=== PATIENT | female | born 1965 | race Caucasian/White ===

== ENCOUNTER 2022-12-09 23:37 | Inpatient (IN) | payer OTHER ==
[~2022-12-09] VITALS: Ht 167.6 cm; Wt 88.7 kg
[2022-12-10] MEDS ORDERED: LISI-894 PO (01:49)
[2022-12-10] MEDS ORDERED: ATOR20TA PO (01:49)
[2022-12-10] MEDS ORDERED: AMLO-257 PO (01:49)
[2022-12-10] MEDS ORDERED: CARV6 PO (01:49)
[2022-12-10] MEDS ORDERED: ASPI-1444 PO (01:49)
[2022-12-10] MEDS ORDERED: METF-1211 PO (01:49)
[2022-12-10] MEDS ORDERED: CLOP75TA60 PO (01:49)
[2022-12-10 02:00] LABS: BASOPHILS % (AUTO) 0.8 % (0.0-2.0); EOSINOPHILS % (AUTO) 5.3 % (1.0-6.0); HEMATOCRIT 38.4 % (36-46); HEMOGLOBIN 12.8 g/dL (12.0-16.0); LYMPHOCYTES # (AUTO) 2.2 K/uL (1.0-4.8); LYMPHOCYTES % (AUTO) 27.4 % (22.0-44.0); MEAN CORPUSCULAR HEMOGLOBIN 29.9 pg (26.0-34.0); MEAN CORPUSCULAR HGB CONC 33.3 G/dL (31.0-37.0); MEAN CORPUSCULAR VOLUME 90 fL (80-100); MONOCYTES # (AUTO) 0.5 K/uL (0.1-1.0); NEUTROPHILS # (AUTO) 4.9 K/uL (1.8-7.7); NEUTROPHILS % (AUTO) 60.5 % (40.0-70.0); PLATELET COUNT (AUTO) 181 K/uL (150-450); RED BLOOD CELL COUNT(AUTO) 4.28 MIL/uL (4.00-5.20); RED CELL DISTRIBUTION WIDTH 13.7 % (11.5-14.5)
[2022-12-10 02:08] LABS: ANION GAP 12 mmol/L (8-16); CALCIUM, TOTAL 9.4 mg/dL (8.8-10.5); CARBON DIOXIDE 29 mmol/L (22-29); CHLORIDE 101 mmol/L (98-107); CREATININE 1.03 mg/dL (0.60-1.30); GLOMERULAR FILTR. RATE CALC 55 mL/min (>60); GLUCOSE,RANDOM 150 mg/dL (70-110); SODIUM SERUM 142 mmol/L (136-145)
[2022-12-10 02:14] LABS: ALANINE AMINOTRANSFERASE 32 U/L (12-78); ALBUMIN 3.9 g/dL (3.4-5.0); ALKALINE PHOSPHATASE 67 U/L (46-116); ASPARTATE AMINOTRANSFERASE 13 U/L (15-37); BILIRUBIN,TOTAL 0.4 mg/dL (0.1-1.0); TOTAL PROTEIN, SERUM 7.7 g/dL (6.4-8.2)
[2022-12-10 02:30] LABS: COVID AG,FIA SOURCE NASOPHARYNGEAL
[2022-12-10 02:36] LABS: AMPHET/METH SCREEN,URINE NEGATIVE (NEGATIVE); BARBITURATE SCREEN, URINE NEGATIVE (NEGATIVE); BENZODIAZEPINES SCREEN,URINE NEGATIVE (NEGATIVE); CANNABINOID SCREEN,URINE NEGATIVE (NEGATIVE); COCAINE SCREEN,URINE NEGATIVE (NEGATIVE); METHADONE SCREEN, URINE NEGATIVE (NEGATIVE); OPIATE SCREEN,URINE NEGATIVE (NEGATIVE); PHENCYCLIDINE SCREEN,URINE NEGATIVE (NEGATIVE)
[2022-12-10] MEDS ORDERED: ONDANSETRON HCL 4 MG/2 ML VIAL IVP PRN (06:00)
[2022-12-10 06:37] VITALS: BP 127/57
[2022-12-10] MEDS ORDERED: CARVEDILOL 6.25 MG TABLET PO SCH (09:00)
[2022-12-10] MEDS ORDERED: AmLODIPine BESYLATE 5 MG TABLET PO SCH (09:00)
[2022-12-10] MEDS: ASPIRIN 81 MG DR TABLET PO SCH (09:06)
[2022-12-10] MEDS: HEPARIN SODIUM,PORCINE 5,000 UNITS/ML VIAL SQ SCH ×2 (09:06→15:59)
[2022-12-10] MEDS: MetFORMIN HCL 500 MG TABLET PO SCH ×2 (09:06→17:26)
[2022-12-10] MEDS: CLOPIDOGREL BISULFATE 75 MG TABLET PO SCH (09:07)
[2022-12-10 20:01] VITALS: BP 151/62
[2022-12-10] MEDS: ACETAMINOPHEN 325 MG TABLET PO PRN (20:05)
[2022-12-10] MEDS ORDERED: LISINOPRIL 10 MG TABLET PO SCH (21:00)
[2022-12-10] MEDS ORDERED: ATORVASTATIN CALCIUM 20 MG TABLET PO SCH (21:00)
[2022-12-10] MEDS ORDERED: LISINOPRIL 20 MG TABLET PO SCH (21:00)
[2022-12-11 04:02] VITALS: BP 142/56
[2022-12-11 07:30] VITALS: BP 112/60
[2022-12-11] MEDS: HEPARIN SODIUM,PORCINE 5,000 UNITS/ML VIAL SQ SCH ×3 (08:00→15:23)
[2022-12-11] MEDS: MetFORMIN HCL 500 MG TABLET PO SCH ×2 (08:00→18:00)
[2022-12-11] MEDS: CLOPIDOGREL BISULFATE 75 MG TABLET PO SCH (08:12)
[2022-12-11] MEDS: ASPIRIN 81 MG DR TABLET PO SCH (08:12)
[2022-12-11] MEDS ORDERED: ASPI-1450 PO (12:26)
[2022-12-11] MEDS ORDERED: ATOR20TA PO (12:27)
[2022-12-11] MEDS ORDERED: CLOP75TA60 PO (12:27)
[2022-12-11] MEDS ORDERED: LISI-893 PO (12:28)
[2022-12-11] MEDS ORDERED: METF-1211 PO (12:28)
[2022-12-11] MEDS ORDERED: HEPA500018 SQ (12:28)
[2022-12-11] MEDS ORDERED: ACET-2247 PO (12:30)
[2022-12-11] MEDS: ACETAMINOPHEN 325 MG TABLET PO PRN (15:25)
[2022-12-11 19:39] VITALS: BP 109/89
[2022-12-11] MEDS ORDERED: LISINOPRIL 10 MG TABLET PO SCH (21:00)
== END 2022-12-11 20:20 | DRG 885 ==
LOC: EMS 23:42 → 6S 12-10 05:59
PROVIDERS: ADMIT Internal Medicine; ATTEND Internal Medicine
DX: F33.2 Major depressive disorder, recurrent severe without psychotic features (principal); I10 Essential (primary) hypertension; E11.9 Type 2 diabetes mellitus without complications; R79.89 Other specified abnormal findings of blood chemistry; E78.5 Hyperlipidemia, unspecified; E66.9 Obesity, unspecified; Z68.31 Body mass index [BMI] 31.0-31.9, adult; Z63.4 Disappearance and death of family member
CPT/HCPCS: 80053; 80307; 84443; 85025; 93005; 99285; G0480; J1644